=== PATIENT | male | born 1975 | race Caucasian/White ===

== ENCOUNTER → 2018-05-25 | Outpatient (CLI) | payer OTHER ==
[2018-05-25 10:24] LABS: ANION GAP 12 (8-16); BLOOD UREA NITROGEN 21 mg/dl (7-20); CALCIUM 9.3 mg/dl (8.4-10.2); CARBON DIOXIDE 29 mmol/L (21-31); CHLORIDE 106 mmol/L (97-110); GLUCOSE 88 mg/dl (70-220); POTASSIUM 4.2 mmol/L (3.5-5.1); SODIUM 143 mmol/L (135-144)
[2018-05-25] MEDS: NITROGLYCERIN AEROSOL (4.9 GM) (11:00)
[2018-05-25] MEDS: SOD CHLORIDE 0.9% 100 ML (11:28)
[2018-05-25] MEDS: IODIXANOL LOCM 100 ML BTL (11:28)
== END | disposition home or self-care (01) ==
LOC: LAB 08:52
DX: Z01.818 Encounter for other preprocedural examination (principal); R94.39 Abnormal result of other cardiovascular function study; R07.9 Chest pain, unspecified; R06.02 Shortness of breath
CPT/HCPCS: 75571; 75574; 80048

== ENCOUNTER 2018-06-09 07:15 | Day surgery (SDC) | payer OTHER ==
[~2018-06-09 07:15] MED LIST: LIDOCAINE 2% (SDV) 5 ML INJ; ONDANSETRON 4 MG INJ
[2018-06-09] MEDS ORDERED: FENTAnyl 50 MCG/ML VIAL (08:28)
[2018-06-09] MEDS ORDERED: MIDAZOLAM 1 MG/ML 2 ML INJ (08:33)
[2018-06-09] MEDS ORDERED: PROPOFOL 20 ML (08:34)
[2018-06-09] MEDS ORDERED: METOCLOPRAMIDE 10 MG INJ (08:35)
[2018-06-09] MEDS ORDERED: CEFAZOLIN 1 GM INJ (08:37)
[2018-06-09] MEDS ORDERED: HYDROmorphONE 1 MG/5 ML IV SYRINGE IV ×3 (10:00)
[2018-06-09] MEDS ORDERED: LABETALOL HCL 20MG INJ IV (10:00)
[2018-06-09] MEDS ORDERED: ONDANSETRON 4 MG INJ IV (10:00)
[2018-06-09] MEDS ORDERED: IPRATROPIUM (NEB) 0.5 MG/2.5 ML AMP HHN (10:00)
[2018-06-09] MEDS ORDERED: KETOROLAC 30 MG INJ IV (10:00)
[2018-06-09] MEDS ORDERED: FENTAnyl 50 MCG/ML VIAL IV ×2 (10:00)
[2018-06-09] MEDS ORDERED: LEVALBUTEROL (NEB) 1.25 MG/0.5 ML AMP HHN (10:00)
[2018-06-09] MEDS ORDERED: MEPERIDINE 25 MG INJ IV (10:00)
[2018-06-09] MEDS ORDERED: hydrALAzine 20 MG INJ IV (10:00)
[2018-06-09] MEDS ORDERED: DIPHENHYDRAMINE 50 MG INJ IV (10:00)
[2018-06-09] MEDS ORDERED: HYDROmorphONE 2 MG/ML SYG (10:50)
[2018-06-09] MEDS: BUPIVACAINE 0.25% (MPF) 30 ML INJ (11:04)
== END 2018-06-09 13:18 | disposition home or self-care (01) ==
LOC: SDS 07:15
DX: N43.3 Hydrocele, unspecified (principal); I10 Essential (primary) hypertension; E11.9 Type 2 diabetes mellitus without complications
CPT/HCPCS: 55040; 82962; 88304